=== PATIENT | female | born 1980 | race Hispanic/Latino ===

== ENCOUNTER 2024-04-04 11:47 | Emergency (ER) | payer SELFPAY ==
[~2024-04-04] VITALS: Ht 157.5 cm; Wt 72.6 kg
[2024-04-04 14:08] VITALS: TEMP 98.3
[2024-04-04 14:51] LABS: BILIRUBIN,URINE NEGATIVE (NEGATIVE); CLARITY,URINE SL CLOUDY (CLEAR); COLOR,URINE YELLOW (YELLOW); GLUCOSE, URINE NEGATIVE (NEGATIVE); KETONES,URINE NEGATIVE (NEGATIVE); LEUKOCYTE ESTERASE ,URINE NEGATIVE (NEGATIVE); NITRITE,URINE NEGATIVE (NEGATIVE); PH,URINE 7 (5 - 7); PROTEIN,URINE DIPSTICK NEGATIVE (NEGATIVE); URINE UROBILINOGEN 0.2 mg/dL (0.2 - 1)
[2024-04-04 14:52] LABS: PREGNANCY TEST, URINE NEGATIVE (NEGATIVE)
[2024-04-04 15:10] LABS: BACTERIA,URINE FEW /HPF; EPITHELIAL CELLS,URINE MANY /LPF; RBC,URINE 0-5 /HPF (0-5); WBC,URINE (MAN) 0-5 /HPF (0-5)
[2024-04-04] MEDS ORDERED: CYCLOBENZAPRINE10 MG PO (16:30)
[2024-04-04] MEDS ORDERED: NAPROXEN250 MG PO (16:30)
[2024-04-04 16:34] VITALS: PULSE 66; RESP 16; O2SAT 100
== END 2024-04-04 16:45 | disposition home or self-care (01) ==
LOC: ER 12:12
DX: M54.50 Low back pain, unspecified (principal)
CPT/HCPCS: 72110; 81001; 81025; 99283